=== PATIENT | female | born 1955 | race Caucasian/White ===

== ENCOUNTER → 2018-10-14 | Outpatient (REF) | payer BC ==
[~2018-10-14] MED LIST: ANTIVERT25 MG OR; DIOVAN HCT320 MG/25 OR; DOXYCYCL HYC100 MG PO; METFORMIN500 MG OR; METFORMIN500 MG PO; PERCOCET 5/325M1 TAB PO; SYNTHROID125 MCG PO; SYNTHROID175 MCG OR; ZESTRIL10 M1 PO
== END | disposition home or self-care (01) | DRG 603 ==
LOC: LABSPEC 16:46
PROVIDERS: ATTEND Surgery
DX: L02.415 Cutaneous abscess of right lower limb (principal); E11.621 Type 2 diabetes mellitus with foot ulcer

== ENCOUNTER 2019-05-07 11:39 | Day surgery (SDC) | payer MEDICARE, OTHER ==
[~2019-05-07] VITALS: Ht 162.6 cm; Wt 87.1 kg
[~2019-05-07 11:39] MED LIST changes: +ASPIRIN81 MG PO; +ELIQUIS2.5 MG PO; +JARDIANCE10 MG; +PLAVIX75 MG PO; +TRULICITY1.5 MG/0.5 SC
[2019-05-07] MEDS ORDERED: PERCOCET 5/325M1 TAB PO (15:57)
[2019-05-07 17:01] VITALS: BP 141/64
== END 2019-05-07 16:46 | disposition home or self-care (01) ==
LOC: ORM 11:39
PROVIDERS: ATTEND Surgery
PROC: 0HDMXZZ Extraction of Right Foot Skin, External Approach (ICD-10-PCS; principal; 2019-05-07)
DX: E11.621 Type 2 diabetes mellitus with foot ulcer (principal); L97.519 Non-pressure chronic ulcer of other part of right foot with unspecified severity; Z79.84 Long term (current) use of oral hypoglycemic drugs

== ENCOUNTER 2021-02-11 10:15 | Inpatient (IN) | payer MEDICARE, OTHER ==
[~2021-02-11] VITALS: Ht 162.6 cm; Wt 105.0 kg
--- NOTE | 2021-02-11 06:59 | NUR ---
RECIEVED REPORT FROM SOFIA CASTELLANO AT [facility]
[2021-02-11 10:15] VITALS: BP 111/50
--- NOTE | 2021-02-11 10:15 | NUR ---
PT ARRIVED TO [facility] ROOM 273 VIA MEDICAL TRANSPORT IN STABLE CONDITION FROM [facility]. PT IS A/OX3.ASSESSMENT AND VITALS COMPLETED.TEMP 100.6,BP 111/50, HR 115, O2 95% ON ROOM AIR.RESPIRATIONS ARE EVEN AND UNLABORED WITH NO DISTRESS NOTED.LUNG SOUNDS ARE CLEAR. HEART RHYTHM IS NORMAL. BOWEL SOUNDS ARE ACTIVE, LAST REPORTED BM 02/10/21. RADIAL PULSES STRONG. PEDAL PULSE WEAK. RIGHT BKA NOTED. WOUND ON RIGHT STUMP NOTED. PICTURES AND SWAB TO BE OBTAINED.CELLULITIS NOTED TO RIGHT UPPER LEG, REDDENED AND WARM TO TOUCH. #18G LAC FLUSHED, SITE APPEARS HEALTHY AND PATENT. PT DENIES OF ANY PAINS. BLEACH CHLORINATOR NOTIFIED OF ALLERGIES. FALL RISK BAND AND ALLERGY BAND REAPPLIED. PT DENIES OF ANY ADDITIONAL NEEDS AT THIS TIME. NOTIFIED OF TEMP. NEW ORDERS TO BE OBTAINED. PT ORIENTED TO ROOM AND CALL SYSTEM. ALL SAFETY PRECAUTIONS ARE IN PLACE WITH CALL LIGHT IN REACH.WILL CONTINUE OT MONITOR.
--- NOTE | 2021-02-11 11:32 | NUR ---
DR CHACON AT BEDSIDE
--- NOTE | 2021-02-11 11:58 | NUR ---
PT ATTEMPT TO USE BED SAUCEDA. INCONT OF URINE AT THIS TIME. TRIAL COURT JUDGE AT BEDSIDE TO ASSIST WITH CLEANING UP. REPSIRATIONS ARE EVEN AND UNLABORED WITH NO DISRTESS NOTED. #18G LAC REMAINS IN PLACE. PT DENIES OF ANY NEEDS AT THIS TIME. ALL SAFETY PRECAUTIONS ARE IN PLACE WITH CALL LIGHT IN REACH. WILL CONTINUE TO MONITOR.
--- NOTE | 2021-02-11 12:45 | NUR ---
REASSESSMENT OF TEMP RESULTING IN 98.8. NO TYLENOL GIVEN
[2021-02-11] MEDS ORDERED: TRULICITY1.5 MG/0.5 SC (13:31)
[2021-02-11] MEDS ORDERED: LISI20TA5 PO (13:39)
[2021-02-11] MEDS ORDERED: NORVASC5 M1 PO (13:40)
[2021-02-11] MEDS ORDERED: WARFARIN4 MG PO (13:41)
[2021-02-11] MEDS ORDERED: CLOPIDOGREL75 MG PO (13:42)
[2021-02-11] MEDS ORDERED: LEVO-T137 MCG PO (13:44)
[2021-02-11 13:54] LABS: HEMATOCRIT 34.8 % (37.0-47.0); HEMOGLOBIN 10.8 g/dl (12.0-16.0); IMMATURE GRANULOCYTES 0.3 % (0.0-5.0); MEAN CELL VOLUME 88.5 fL CALC (80.0-100.0); MEAN CORPUSCULAR HGB 27.5 pG CALC (26.0-32.0); NEUT# 15.96 thou/uL (2.00-7.15); RED BLOOD COUNT 3.93 mill/uL (4.20-5.60); RED CELL DISTRI WIDTH 13.9 % (11.5-15.5)
--- NOTE | 2021-02-11 14:05 | NUR ---
MED REC COMPLETED.ALL HOME MEDICATIONS SENT HOME WITH . LUIS IN MED ROOM FOR APPROVAL
[2021-02-11 14:12] LABS: ALBUMIN 3.6 g/dL (3.2-5.0); ALKALINE PHOSPHATASE 74 u/l (38-126); ANION GAP 12 (6-22 (CALC)); BILIRUBIN, TOTAL 0.4 mg/dL (0.0-1.4); BUN 22 mg/dL (8-23); BUN/CREATININE RATIO 22 (12-20 (CALC)); CARBON DIOXIDE 24 mmol/l (22-30); CHLORIDE 104 mmol/l (95-108); GFR 55 ML/MIN (>=60 (CALC)); GFR FOR AFR.AMER. > 60 ML/MIN (>=60 (CALC)); POTASSIUM 4.4 mmol/l (3.5-5.1); SGOT/AST 31 u/l (9-36); SODIUM 136 mmol/l (137-146); TOTAL PROTEIN 6.8 g/dL (6.3-8.2)
--- NOTE | 2021-02-11 14:47 | NUR ---
S: ASAEL QUIGLEY is a 65 F who presents with INFECTED STUMP. She has a history of INFECTED STUMP. All medications in patient's chart were reviewed. O: VS: T 100.6 W 102kg, Scr=0.7,CrCl= >100ml/min> A: WOUNd culture <is pending P: Patient is on ZOSYN 3.375G Q6H. Vancomycin ordered for pharmacy to dose. Start Vancomycin 1 GRAM IV Q8H. Vancomycin trough is drawn before the 4th dose on 02/12/21 @1330. Vancomycin goal trough is between <10-20 mcg/ml>. Pharmacy will follow and or advise on antibiotics use as needed. NHAN DEL CASTILLOD
[2021-02-11 15:18] LABS: URINE BILIRUBIN - DIPSTICK NEGATIVE (NEGATIVE); URINE BLOOD DIPSTICK SMALL (NEGATIVE); URINE COLOR YELLOW; URINE GLUCOSE - DIPSTICK NEGATIVE (NEGATIVE); URINE KETONE TRACE mg/dL (NEGATIVE); URINE LEUK ESTERASE NEGATIVE (NEGATIVE); URINE NITRITE - DIPSTICK NEGATIVE (Negative); URINE PH 5.5 (4.5-8.0); URINE PROTEIN - DIPSTICK NEGATIVE (NEG-TRACE); URINE SPECIFIC GRAVITY >=1.030; URINE UROBILINOGEN - DIPSTICK 0.2 E.U./dL (0.2)
[2021-02-11 15:24] LABS: URINE RBC 0-2 RBC/hpf (0-5); URINE SQUAMOUS EPITHELIAL CELL MODERATE EPI/hpf (0-FEW)
[2021-02-11 15:30] VITALS: BP 164/73
--- NOTE | 2021-02-11 16:00 | NUR ---
PT COMPLAINS OF LEG CRAMPING. NEW ORDER FOR LORTAB OBTAINED. SENT TO PHARMACY.
[2021-02-11 16:11] VITALS: BP 193/62
--- NOTE | 2021-02-11 16:11 | NUR ---
REASSESSMENT OF BP REUSLTING IN 193/62, HR 111, O2 95% ON ROOMA IR. TEMP 100.2. TYLENOL ADMINISTERED. PT STATES TREMORS ARE STARTING AGAIN. MD NOTIFIED. NEW ORDER FOR MORPHINE 2MG, NORMAL SALINE AT 100 ML/ HR. REPEAT LACTIC AND BC. LAB CALLED. ORDER SENT TO PHARMACY. RESPIRATIONS REAMINS EVEN AND UNLABORED WITH NO DSIRTESS NOTED. WILL CONTINUE TO MONITOR.
--- NOTE | 2021-02-11 16:43 | NUR ---
LAB AT BEDSIDE
[2021-02-11 17:36] VITALS: BP 165/59
--- NOTE | 2021-02-11 17:36 | NUR ---
REASSESSMENT OF VITALS. TEMP 101.6, BP 165/59, HR 107, O2 95% ROOM AIR. RESPIRATIONS ARE EVEN AND UNLABORED WITH NO DISTRESS. PT STATES SHE FEELS BETTER AND HAS NO PAIN. ICE PACKS PLACE UNDER ARMS AND BEHIND NECK WITH SHEET ONLY TO ASSIST WITH TEMP. PT DENIES OF ANY OTHER NEEDS. ALL SAFETY PRECAUTIONS ARE IN PLACE WITH CALL LIGHT IN REACH. WILL CONTINUE TO MONITOR.
[2021-02-11 18:28] VITALS: BP 158/61
--- NOTE | 2021-02-11 18:43 | NUR ---
REASSESSMENT OF VITALS. TEMP 100.8, BP 158/61, HR 107, O2 95%. NOTFIFIED.ORDERS FOR TORADOL 15 MG Q6H FOR FEVER AND PAIN ORDERED. ORDERED TO HOLD SOLUMEDROL. ORDERS FOR TELEMETRY. PT REMAINS RESTING IN BED. PT DENIES OF ANY DISCOMFORTS. ALL SAFETY PERCAUTIONS ARE IN PLACE WITH CALL LIGHT IN REACH. WILL CONTINUE TO MONITOR.
--- NOTE | 2021-02-11 19:52 | NUR ---
PHYSICAL ASSESMENT COMPLETE. PT CURRENTLY DENIES PAIN OR DISCOMFORT. SCHEDULED MEDICATIONS AND PRN MEDICATION ADMINISTERED, SEE E-MAR. PT DENIES ANY NEEDS AT THIS TIME. PLAN OF CARE REVIEWED, PT DENIES QUESTIONS, VERBALIZES UNDERSTANDING. ITEMS WITHIN REACH, BED LOCKED IN LOW POSITION W/ BEDRAILS UP X2. CALL LAROSE WITHIN REACH, AGREES TO CALL PRN.
[2021-02-11 20:00] VITALS: BP 142/61
[2021-02-12] VITALS: BP 134/71
--- NOTE | 2021-02-12 | NUR ---
PT LAYING IN BED WITH EYES CLOSED, APPEARS TO BE SLEEPING, APPEARS COMFORTABLE AND IN NO DISTRESS. RESPIRATIONS REGULAR AND UNLABORED. ITEMS REMAIN WITHIN REACH, CALL LAROSE REMAINS WITHIN REACH. BED REMAINS LOCKED AND IN LOW POSITION WITH BEDRAILS UP X2. WILL CONTINUE TO MONITOR.
[2021-02-12 04:00] VITALS: BP 140/73
--- NOTE | 2021-02-12 04:22 | NUR ---
PT RESTING IN BED, NO SIGNS OF DISTRESS NOTED, RESP EVEN AND UNLABORED. PT VOICES NO NEEDS OR COMPLAINTS AT THIS TIME. CALL LIGHT IN REACH, CONTINUE TO MONITOR.
[2021-02-12 05:57] LABS: ALBUMIN 2.9 g/dL (3.2-5.0); ALKALINE PHOSPHATASE 80 u/l (38-126); ANION GAP 10 (6-22 (CALC)); BILIRUBIN, TOTAL 0.5 mg/dL (0.0-1.4); BUN 19 mg/dL (8-23); BUN/CREATININE RATIO 23 (12-20 (CALC)); CARBON DIOXIDE 22 mmol/l (22-30); CHLORIDE 108 mmol/l (95-108); CREATININE 0.8 mg/dL (0.5-1.0); GFR > 60 ML/MIN (>=60 (CALC)); GFR FOR AFR.AMER. > 60 ML/MIN (>=60 (CALC)); INTERNATIONAL NORMALIZED RATIO 2.4 RATIO (0.7-1.3); POTASSIUM 4.1 mmol/l (3.5-5.1); PROTHROMBIN TIME 24.4 SECONDS (9.0-12.5); SGOT/AST 29 u/l (9-36); SODIUM 135 mmol/l (137-146); TOTAL PROTEIN 5.8 g/dL (6.3-8.2)
[2021-02-12 08:11] VITALS: BP 150/52; BP 183/73
--- NOTE | 2021-02-12 08:31 | NUR ---
SHIFT CHANFE REPORT, PT AWAKE ALERT AND ORIENTED SITTING UP IN BED, VOICES CONCERN ABOUT HER ORDERED MEDICATIONS STATING SHE DOESNT TAKE SOME ORDERED ONES AND NEEDS IT ADDRESSED, IVF INFUSING, TELE MONITOR IN PLACE, PUREWICK CATHETER IN PLACE WITH DARK JUSTYN URINE, CALL LAROSE IN REACH AND BED LOCKED IN LOWEST POSITION, WILL CONTINUE TO MONITOR AND ADDRESS NEEDS.
[2021-02-12 10:35] VITALS: BP 147/53
--- NOTE | 2021-02-12 12:00 | NUR ---
SITTING UP IN BED HAVING MEAL AT THIS TIME, NO NEW COMPLAINS, CALL LAROSE IN REACH.
[2021-02-12 14:55] VITALS: BP 140/54
--- NOTE | 2021-02-12 15:37 | NUR ---
RELAXING IN BED AT THIS TIME, VOICES CONCERN ABOUT NOT HAVING BOWEL MOVEMENT, MD NOTIFIED AND NU AWAITING RESPONSE, ALL OTHER NEEDS ADDRESSED.
[2021-02-12 19:21] VITALS: BP 144/71
[2021-02-13] VITALS (7 sets, daily range): BP systolic 136–168; BP diastolic 66–87
--- NOTE | 2021-02-13 01:15 | NUR ---
PT C\O OF CRAMOING IN HER LEFT LEG. ADMINISTERED PRN PAIN MEDICATION AND WILL CONTINUE TO MONITOR.
[2021-02-13 06:02] LABS: HEMATOCRIT 32.4 % (37.0-47.0); HEMOGLOBIN 9.9 g/dl (12.0-16.0); IMMATURE GRANULOCYTES 0.3 % (0.0-5.0); MEAN CELL VOLUME 90.8 fL CALC (80.0-100.0); MEAN CORPUSCULAR HGB 27.7 pG CALC (26.0-32.0); MEAN CORPUSCULAR HGB CONC 30.6 g/dL CAL (32.0-36.0); NEUT# 6.9 thou/uL (2.00-7.15); RED BLOOD COUNT 3.57 mill/uL (4.20-5.60); RED CELL DISTRI WIDTH 14.3 % (11.5-15.5)
[2021-02-13 06:26] LABS: ALBUMIN 2.9 g/dL (3.2-5.0); ALKALINE PHOSPHATASE 90 u/l (38-126); ANION GAP 11 (6-22 (CALC)); BILIRUBIN, TOTAL 0.3 mg/dL (0.0-1.4); BUN 16 mg/dL (8-23); BUN/CREATININE RATIO 20 (12-20 (CALC)); CARBON DIOXIDE 23 mmol/l (22-30); CHLORIDE 108 mmol/l (95-108); CREATININE 0.8 mg/dL (0.5-1.0); GFR > 60 ML/MIN (>=60 (CALC)); GFR FOR AFR.AMER. > 60 ML/MIN (>=60 (CALC)); POTASSIUM 4.1 mmol/l (3.5-5.1); SGOT/AST 26 u/l (9-36); SODIUM 137 mmol/l (137-146); TOTAL PROTEIN 5.8 g/dL (6.3-8.2)
[2021-02-13 06:41] LABS: PROTHROMBIN TIME 20.4 SECONDS (9.0-12.5)
--- NOTE | 2021-02-13 08:05 | NUR ---
SHIFT CHANGE REPORT, PT AWAKE ALERT AND ORIENTED RESTING IN BED, NO C/O DISCOMFORT AT THIS TIME BUT VIOCES CONCERN ABOUT NOT HAVING BM, WARM PRUNE JUICE OFFERED. IVF INFUSING, TELE MONITOR IN PLACE, CALL LAROSE IN REACH AND BED LOCKED IN LOWEST POSITION.
--- NOTE | 2021-02-13 12:37 | NUR ---
SITTING IN BED IN HIGH FOWLERS POSITION HAVING MEAL, ALL NEEDS ADDRESSED, WILL CONTINUE TO MONITOR.
--- NOTE | 2021-02-13 15:22 | NUR ---
S: ASAEL QUIGLEY is a 65 F who presents with infected stump. She has a history of diabtets, HTN, PVD . All medications in patient's chart were reviewed. O: VS: BP 154/73 mmHg, P 91 bpm, RR 18 bom, T 97.8 F W 102 kg, HT 64 in, Scr=0.8 mg/dl, CrCl=80 ml/min Vacomycin trough level = 19 ug/ml A: Vacomycin trough level supratherapeutic. Will decrease dose. Blood culture preliminary shows no growth. Wound culture final shows streptococcus agalcatiae which is sensitive to ampicillin and vancomycin. P: Patient is on Zosyn 3.375 g IV Q6H and Vancomycin 1 g IV Q8H. Vancomycin ordered for pharmacy to dose. Decrease Vancomycin 1 g IV Q12H. Vancomycin trough is drawn before the 4th dose on 02/15 @ 0430. Vancomycin goal trough is between 10-20 mcg/ml. Pharmacy will follow and or advise on antibiotics use as needed.
--- NOTE | 2021-02-13 16:44 | NUR ---
PT SCHEDULED FOR MRI, UNABLE TO LEAVE UNIT @ 1600 WHEN MRI CALLED DUE TO ANTIBIOTIC INFUSING AT THAT TIME, REGULATORY PROCESS MANAGER STATED SHE SPOKE TO GUANAKITO INFORMING HIM TEST WILL BE DONE TOMORROW AFTER 0730, PT INFORMED OF CHANGE AND STATES UNDERSTANDING.
--- NOTE | 2021-02-13 17:53 | NUR ---
WOUND CARE TEAM ROUNDED TO DAY, REMOVED DRESSING AND SAID WOULD PLACE ORDER FOR NEW DRESSING CHANGES, WE ARE STILL AWAITING ORDERS.
--- NOTE | 2021-02-13 18:27 | NUR ---
ASSISTED ON BED SAUCEDA, GENEVIEVE CARE GIVEN AFTER USE.
[2021-02-14 04:05] VITALS: BP 157/77
[2021-02-14 05:30] LABS: HEMOGLOBIN 10.1 g/dl (12.0-16.0); MEAN CELL VOLUME 88.9 fL CALC (80.0-100.0); MEAN CORPUSCULAR HGB 28.1 pG CALC (26.0-32.0); MEAN CORPUSCULAR HGB CONC 31.6 g/dL CAL (32.0-36.0); RED BLOOD COUNT 3.6 mill/uL (4.20-5.60); RED CELL DISTRI WIDTH 13.9 % (11.5-15.5)
[2021-02-14 05:45] LABS: ANION GAP 11 (6-22 (CALC)); BUN 10 mg/dL (8-23); BUN/CREATININE RATIO 15 (12-20 (CALC)); CARBON DIOXIDE 22 mmol/l (22-30); CHLORIDE 108 mmol/l (95-108); CREATININE 0.7 mg/dL (0.5-1.0); GFR > 60 ML/MIN (>=60 (CALC)); GFR FOR AFR.AMER. > 60 ML/MIN (>=60 (CALC)); POTASSIUM 3.9 mmol/l (3.5-5.1); SODIUM 137 mmol/l (137-146)
--- NOTE | 2021-02-14 07:00 | NUR ---
PT REPORT RECEIVED FROM NIGHT NURSEISIDRO
--- NOTE | 2021-02-14 07:30 | NUR ---
PT WAS FOUND RESTING IN BED IN SEMI-DUMONT'S POSITION;PT IS A&OX3;PT IS BEING TAKEN DOWN TO MRI WITHIN THE NEXT FEW MINUTES;ASSESSMENT WILL BE COMPLETED UPON ARRIVAL BACK TO FLOOR
--- NOTE | 2021-02-14 08:05 | NUR ---
PT WAS TRANSPORTED VIA STRETCHER IN STABLE CONDITION TO MRI ACCOMPANIED BY STAFF
[2021-02-14 10:15] VITALS: BP 177/68
--- NOTE | 2021-02-14 10:30 | NUR ---
PT ARRIVED BACK TO FLOOR VIA STRETCHER FROM MRI IN STABLE CONDITION ACCOMPANIED BY STAFF;PT ASSESSMENT WAS COMPLETED;HEART SOUNDS ARE REGULAR IN RATE AND RHYTHM;TELE IS IN PLACE;LUNG SOUNDS ARE CLEAR;RESPIRATIONS ARE EVEN AND UNLABORED ON RA;PT PULSES ARE STRONG IN ALL EXTEMETIES;PT HAS AN BKA WITH A WOUND PRESENT ON THE STUMP;DRESSING IS CDI;PT HAS NOTED TRACE GENERALIZED EDEMA WITH BRUISES NOTED TO LEFT BILL AND GREAT TOE;PT HAS A PUREWICK IN PLACE DRAINING CLEAR YELLOW URINE;#18G IV IN LAC IS RUNNING NS@20ML/HR;IV SITE APPEARS FREE OF COMPLICATIONS AT THIS TIME;ABDOMEN IS SOFT WITH ACTIVE BOWEL SOUNDS IN ALL QUADRANTS;SAFETY PRECAUTIONS IN PLACE;CALL LIGHT WITHIN REACH;PT ENCOURAGED TO CALL FOR ANY NEEDS OR CONCERNS;WILL CONTINUE TO MONITOR.
--- NOTE | 2021-02-14 11:00 | NUR ---
PT MORNING MEDICATIONS LATE DUE TO PT BEING IN MRI;MEDICATIONS GIVEN AFTER RETURN TO THE FLOOR.
[2021-02-14 11:11] VITALS: BP 160/78
[2021-02-14 11:50] LABS: INTERNATIONAL NORMALIZED RATIO 2.8 RATIO (0.7-1.3); PROTHROMBIN TIME 28.7 SECONDS (9.0-12.5)
--- NOTE | 2021-02-14 12:00 | NUR ---
PT WAS FOUND SITTING ON SIDE OF BED EATING LUNCH;TELE IS IN PLACE;SAFETY PRECAUTIONS IN PLACE;CALL LIGHT WITHIN REACH;WILL CONTINUE TO MONITOR.
[2021-02-14 15:03] VITALS: BP 161/69
[2021-02-14 18:43] VITALS: BP 161/73
--- NOTE | 2021-02-14 20:15 | NUR ---
PT RESTING COMFORTABLY IN BED. DRESSING TO RBKA REMAINS CDI, NO STRIKE THROUGH NOTED. C/O PAIN, LORTAB GIVEN PER ORDER. PT ALSO C/O MUSCLE CRAMPING, GIVEN FLEXERIL PER ORDER. PER PT MEDICATIONS EFFECTIVE FOR PAIN AND MUSCLE CRAMPING. PURE WICK REMAINS DRAINING CLEAR YELLOW URINE TO SUCTION. SAFETY PRECAUTIONS IN PLACE, BED IN LOWEST POSITION, CALL LIGHT WITHIN REACH. WILL MONITOR
[2021-02-15] VITALS (7 sets, daily range): BP systolic 142–177; BP diastolic 68–83
--- NOTE | 2021-02-15 00:45 | NUR ---
PT RESTING COMFORTABLY IN BED, NO COMPLAINTS VOICED AT THIS TIME. BREATHING EVEN AND UNLABORED. REQUESTED ADDITIONAL PAIN PILL, ADVISED SHE CAN NOT HAVE ANOTHER LORTAB UNTIL APPROXIMATLY 0230. ADVISED PT THAT NEXT TIME SHE WAKES UP IF IT AFTER 0230 TO RING THE CALL LAROSE. PT OFFERED TORADOL TO WHICH SHE REFUSED. WILL MONITOR
--- NOTE | 2021-02-15 04:05 | NUR ---
PT RESTING COMFORTABLY IN BED WITH HER EYES CLOSED. PT REQUESTED PAIN MEDICATION, GIVEN AT APPROXIMATLY 0244. PT REPORTS PAIN MEDICATION EFFECTIVE FOR PAIN. PT DUE FOR IV CHANGE TODAY, PT REFUSED AT THIS TIME. REQUESTED IT BE DONE ON DAY SHIFT WHEN SHE IS FULLY AWAKE. WILL CONTINUE TO MONITOR
[2021-02-15 05:24] LABS: HEMATOCRIT 30.4 % (37.0-47.0); HEMOGLOBIN 9.8 g/dl (12.0-16.0); MEAN CELL VOLUME 88.4 fL CALC (80.0-100.0); MEAN CORPUSCULAR HGB 28.5 pG CALC (26.0-32.0); MEAN CORPUSCULAR HGB CONC 32.2 g/dL CAL (32.0-36.0); RED BLOOD COUNT 3.44 mill/uL (4.20-5.60)
[2021-02-15 05:32] LABS: ANION GAP 10 (6-22 (CALC)); BUN 11 mg/dL (8-23); BUN/CREATININE RATIO 15 (12-20 (CALC)); CARBON DIOXIDE 23 mmol/l (22-30); CHLORIDE 108 mmol/l (95-108); CREATININE 0.7 mg/dL (0.5-1.0); GFR > 60 ML/MIN (>=60 (CALC)); GFR FOR AFR.AMER. > 60 ML/MIN (>=60 (CALC)); POTASSIUM 3.6 mmol/l (3.5-5.1); SODIUM 138 mmol/l (137-146)
[2021-02-15 05:47] LABS: INTERNATIONAL NORMALIZED RATIO 3.2 RATIO (0.7-1.3); PROTHROMBIN TIME 32.2 SECONDS (9.0-12.5)
--- NOTE | 2021-02-15 06:18 | NUR ---
02/14/21 Attempted to see patient in AM - she was in MRI Patient seen in PM for patellar mobilization to the left knee and AROM with mobilization into extension. Her actual ROM is 15 -65 degrees with a springy end feel in extension and in flexion. She has received pain meds and is resting for now but has sat EOB today independently. I encouraged this at least 6 x daily. We will progress to SPT in AM
--- NOTE | 2021-02-15 07:00 | NUR ---
PT REPORT RECEIVED FROM NIGHT NURSELES
--- NOTE | 2021-02-15 08:00 | NUR ---
PT WAS FOUND RESTING IN BED IN SEMI-DUMONT'S POSITION;PT IS A&OX3;VS AND ASSESSMENT WERE COMPLETED;HEART SOUNDS ARE REGULAR IN RATE AND RHYTHM;TELE IS IN PLACE;LUNG SOUNDS ARE CLEAR;RESPIRATIONS ARE EVEN AND UNLABORED ON RA;PT PULSES ARE STRONG IN ALL EXTREMETIES;PT HAS A BKA WITH A WOUND PRESENT ON THE STUMP;DRESSING IS CDI;PT HAS NOTED TRACE GENERALIZED EDEMA WITH BRUISES NOTED TO LEFT BILL AND GREAT TOE;PT HAS A PUREWICK IN PLACE DRAINING CLEAR YELLOW URINE;#18G IV IN LAC IS RUNNING NS@20ML/HR;IV SITE IS PATENT AND APPEARS FREE OF COMPLICATIONS AT THIS TIME;ABDOMEN IS SOFT WITH ACTIVE BOWEL SOUNDS AUSCULATATED IN ALL QUADRANTS;SAFETY PRECAUTIONS IN PLACE;CALL LIGHT WITHIN REACH;PT ENCOURAGED TO CALL WITH ANY NEEDS OR CONCERNS;WILL CONTINUE TO MONITOR.
--- NOTE | 2021-02-15 09:30 | NUR ---
AND GUANAKITO BOGGS AT BEDSIDE DISCUSSING POC WITH PT
--- NOTE | 2021-02-15 12:20 | NUR ---
REPORT REC FROM Alcon STAPLES RN. PT CARE RESUMED BY THIS MANAGER CONTROL
--- NOTE | 2021-02-15 15:10 | NUR ---
DRESSING CHANGE COMPLETED PER MD ORDERS PT TOLERATED WELL . MEDICATION IODOSORB BROUGHT IN FROM HOME BY PATIENT, MEDICATION PROFILED BY PHARMACY. PICTURE OBTAINED.
--- NOTE | 2021-02-15 16:13 | NUR ---
REPORT RECEIVED FORM STALIN, PT ALERT AND ORIENTED LYING IN SUPINE POSITION, NO C/O DISCOMFORT, IVF INFUSING, TELE MONITOR IN PLACE, DRESSING TO RIGHT LEG CDI, PUREWICK CATHETER IN PLACE, CALL LAROSE IN REACH AND BED LOCKED IN LOWEST POSITION
[2021-02-16] VITALS: BP 159/68
[2021-02-16 04:00] VITALS: BP 171/75
[2021-02-16 06:08] LABS: HEMATOCRIT 33.2 % (37.0-47.0); HEMOGLOBIN 10.5 g/dl (12.0-16.0); MEAN CELL VOLUME 87.6 fL CALC (80.0-100.0); MEAN CORPUSCULAR HGB 27.7 pG CALC (26.0-32.0); MEAN CORPUSCULAR HGB CONC 31.6 g/dL CAL (32.0-36.0); NEUT# 4.81 thou/uL (2.00-7.15); RED BLOOD COUNT 3.79 mill/uL (4.20-5.60); RED CELL DISTRI WIDTH 14.1 % (11.5-15.5)
[2021-02-16 06:09] LABS: IMMATURE GRANULOCYTES 6.3 % (0.0-5.0)
[2021-02-16 06:10] LABS: INTERNATIONAL NORMALIZED RATIO 2.8 RATIO (0.7-1.3); PROTHROMBIN TIME 28.6 SECONDS (9.0-12.5)
[2021-02-16 06:20] LABS: ALBUMIN 3.1 g/dL (3.2-5.0); ALKALINE PHOSPHATASE 98 u/l (38-126); ANION GAP 11 (6-22 (CALC)); BILIRUBIN, TOTAL 0.3 mg/dL (0.0-1.4); BUN 9 mg/dL (8-23); BUN/CREATININE RATIO 13 (12-20 (CALC)); CARBON DIOXIDE 23 mmol/l (22-30); CHLORIDE 108 mmol/l (95-108); CREATININE 0.7 mg/dL (0.5-1.0); GFR > 60 ML/MIN (>=60 (CALC)); GFR FOR AFR.AMER. > 60 ML/MIN (>=60 (CALC)); POTASSIUM 3.6 mmol/l (3.5-5.1); SGOT/AST 20 u/l (9-36); SODIUM 138 mmol/l (137-146); TOTAL PROTEIN 6.1 g/dL (6.3-8.2)
--- NOTE | 2021-02-16 07:00 | NUR ---
SHIFT CHANGE REPORT, PT AWAKE ALERT AND ORIENTED RESTING IN BED, C/O R.LEG PAIN THATS INTERMITTENT AND THAT MUSCLE RELAXER ORDERED DOES NOT RELIEVE PAIN, EDEMA TO LEGS AND ARMS HAS IMPROVED, TELE MONITOR IN PLACE,IVF INFUSING, PUREWICK CATHETER IN PLACE, CALL LAROSE IN REACH AND BED LOCKED IN LOWEST POSITION.
[2021-02-16 07:12] VITALS: BP 151/67
--- NOTE | 2021-02-16 12:00 | NUR ---
RESTING IN BED, MEDICAL TEAM ROUNDED AND DISCUSSED PLAN OF CARE PHYSICAL THERAPIST ROUNDED AND WORKED WITH PT, ALL NEED ADDRESSED.
[2021-02-16 12:37] VITALS: BP 162/65
[2021-02-16] MEDS ORDERED: KEFLEX750 M1 PO (13:11)
[2021-02-16] MEDS ORDERED: SLOW-MAG PO (13:16)
--- NOTE | 2021-02-16 13:56 | NUR ---
PT NOTE Patient supine as entered room. agreed to participate in session. Executed quad sets x 10 x 5 sec holds, lheel slides x 15, long arc quads x 15. Bed mobility patient independant scooting and rolling. seated on bed side patient hesitant to as she thought she would fall. Encouragement by therapist calm patient nerves. Sit>stand Max x 2 attempted but difficult, patient executed half motion. nurse in room as exited. [facility] 6 score 13
--- NOTE | 2021-02-16 16:00 | NUR ---
Discharge instructions given. Patient verbalizes understanding of same. Discharged in stable condition via Wheelchair to [facility] with *Other. All belongings sent with pt.
[2021-02-16 16:25] VITALS: BP 152/63
== END 2021-02-16 16:31 | DRG 564 ==
LOC: MS2 10:15
PROVIDERS: Nurse Practitioner; ADMIT Internal Medicine; ATTEND Internal Medicine
DX: T87.43 Infection of amputation stump, right lower extremity (principal); A41.9 Sepsis, unspecified organism; L03.115 Cellulitis of right lower limb; I10 Essential (primary) hypertension; E66.01 Morbid (severe) obesity due to excess calories; E11.51 Type 2 diabetes mellitus with diabetic peripheral angiopathy without gangrene; E03.9 Hypothyroidism, unspecified; E78.5 Hyperlipidemia, unspecified; B95.1 Streptococcus, group B, as the cause of diseases classified elsewhere; Y83.5 Amputation of limb(s) as the cause of abnormal reaction of the patient, or of later complication, without mention of misadventure at the time of the procedure; Z68.39 Body mass index [BMI] 39.0-39.9, adult; Z79.01 Long term (current) use of anticoagulants; Z79.899 Other long term (current) drug therapy; Z89.511 Acquired absence of right leg below knee; E11.65 Type 2 diabetes mellitus with hyperglycemia; S81.801D Unspecified open wound, right lower leg, subsequent encounter
CPT/HCPCS: A9579; Q3014

== ENCOUNTER 2022-11-19 09:06 | Day surgery (SDC) | payer MEDICARE, OTHER ==
[~2022-11-19] VITALS: Ht 162.6 cm; Wt 94.3 kg
[~2022-11-19 09:06] MED LIST changes: +CLOPIDOGREL75 MG PO; +HYDROCHLOROT25 MG PO; +KEFLEX750 M1 PO; +LEVO-T137 MCG PO; +LISI20TA5 PO; +LOVENOX80 MG/0.8 SC; +METFORMIN500 M2 PO; +NORVASC5 M1 PO; +OZEMPIC2 MG SC; +PRAVASTATIN SOD20 MG PO; +SLOW-MAG PO; +WARFARIN4 MG PO
[2022-11-19 11:25] VITALS: BP 147/72
== END 2022-11-19 11:39 | disposition home or self-care (01) ==
LOC: ENDO 09:06 → ORM 11:20 → ENDO 11:20
PROVIDERS: ATTEND Internal Medicine Gastroenterology
PROC: 0DJD8ZZ Inspection of Lower Intestinal Tract, Via Natural or Artificial Opening Endoscopic (ICD-10-PCS; principal; 2022-11-19)
DX: K64.8 Other hemorrhoids (principal); D68.2 Hereditary deficiency of other clotting factors; Z79.01 Long term (current) use of anticoagulants